=== PATIENT | male | born 1985 | race Two or more races ===

== ENCOUNTER 2022-02-13 17:56 | Emergency (ER) | payer MEDICAID, OTHER ==
[~2022-02-13] VITALS: Ht 177.8 cm; Wt 80.0 kg
[2022-02-13] MEDS ORDERED: DOXY-286 PO (19:14)
[2022-02-13 20:50] VITALS: BP 154/103
== END 2022-02-13 20:55 | disposition home or self-care (01) ==
LOC: ER 17:56
DX: K13.0 Diseases of lips (principal)

== ENCOUNTER 2023-01-22 04:55 | Emergency (ER) | payer MEDICAID ==
[~2023-01-22] VITALS: Ht 175.3 cm; Wt 75.0 kg
[~2023-01-22 04:55] MED LIST: DOXY-286 PO
[2023-01-22 05:14] VITALS: BP 131/95
[2023-01-22] MEDS ORDERED: LIDOCAINE 1% HCL (LOCAL ANESTH.) INJ 20ML MDV IJ ONE (06:45)
[2023-01-22] MEDS ORDERED: TETANUS-DIPTH-ACEL PERTUSSIS 0.5ML SYR Tdap IM ONE (07:30)
[2023-01-22] MEDS ORDERED: CEPH500C PO (07:34)
[2023-01-22] MEDS ORDERED: IBUP-1456 PO (07:34)
== END 2023-01-22 08:04 | disposition home or self-care (01) ==
LOC: ER 04:55
DX: S01.511A Laceration without foreign body of lip, initial encounter (principal); Z88.6 Allergy status to analgesic agent; Z88.1 Allergy status to other antibiotic agents; Y04.2XXA Assault by strike against or bumped into by another person, initial encounter; Y93.01 Activity, walking, marching and hiking; Y92.89 Other specified places as the place of occurrence of the external cause; Y99.8 Other external cause status
CPT/HCPCS: 12013; 70486; 99284; J2001; 90715